=== PATIENT | male | born 1950 | race Caucasian/White ===

== ENCOUNTER → 2024-03-05 | Outpatient (CLI) | payer OTHER, SELFPAY ==
[2024-03-05 16:32] LABS: Albumin, Serum 4.6 gm/dL (3.4-4.8); Anion Gap 6 (7-16); BUN/Creatinine Ratio 13 Ratio (12-20); Blood Urea Nitrogen 17 mg/dL (9-23); Calcium 10.2 mg/dL (8.3-10.6); Calcium (Corrected) 10.2 mg/dL (8.5-10.1); Chloride 107 mMol/L (98-107); Creatinine (Component) 1.3 mg/dL (0.6-1.3); Glucose 193 mg/dL (74-106); Osmolality,Calculated 285 (275-295); Phosphorous 3.4 mg/dL (2.4-5.1); Potassium 5.1 mMol/L (3.4-5.1); Prostate Specific Antigen 0.75 ng/mL (0-4.00); Sodium 140 mMol/L (136-145); eGFR 59 See Note
[2024-03-05 16:33] LABS: Collection Type, Urine Clean Catch
[2024-03-05 18:10] LABS: Bacteria,Urine Rare; Bilirubin,Urine Negative (Negative); Blood,Urine Negative (Negative); Clarity,Urine Clear (Clear/Hazy); Color,Urine Yellow (Lt Yel-Yel); Glucose, Urine 4+ (Negative); Ketones,Urine Negative (Negative); Leukocyte Esterase,Urine Positive (Negative); Nitrite,Urine Negative (Negative); Protein,Urine Negative (Neg - Trace); RBC,Urine 3 /hpf (0-3); Specific Gravity,Urine 1.024 (1.001-1.035); Squamous Epithelial Cell,Urine 5 /hpf (0-5); Urobilinogen,Urine Negative mg/dL (0.0-1.0); WBC,Urine 16 /hpf (0-5)
[2024-03-05 18:33] LABS: Culture Indicated,Urine Yes
== END | disposition home or self-care (01) ==
LOC: COPL 15:34
PROVIDERS: PCP Family Medicine; Referring Provider Internal Medicine; Visit Provider Internal Medicine
DX: I12.9 Hypertensive chronic kidney disease with stage 1 through stage 4 chronic kidney disease, or unspecified chronic kidney disease (principal); E11.22 Type 2 diabetes mellitus with diabetic chronic kidney disease; N18.31 Chronic kidney disease, stage 3a; N40.0 Benign prostatic hyperplasia without lower urinary tract symptoms; I63.9 Cerebral infarction, unspecified; R30.0 Dysuria
CPT/HCPCS: 36415; 80069; 81001; 84153; 87086